=== PATIENT | male | born 2000 | race Caucasian/White ===

== ENCOUNTER → 2021-05-26 | Emergency (ER) | payer SELFPAY ==
[2021-05-26 11:40] VITALS: BP 103/70
== END | disposition left against medical advice (07) ==
LOC: ED 11:19
DX: K90.41 Non-celiac gluten sensitivity (principal); Z53.21 Procedure and treatment not carried out due to patient leaving prior to being seen by health care provider

== ENCOUNTER 2021-05-28 06:33 | Emergency (ER) | payer SELFPAY ==
[2021-05-28] MEDS ORDERED: SODIUM CHLORIDE 0.9% 1000 ML 1,000 ML IV ONE (12:43)
[2021-05-28] MEDS ORDERED: MORPHINE 4 MG/1 ML INJ IV ONE (12:43)
[2021-05-28] MEDS ORDERED: ONDANSETRON 4 MG/2 ML INJ IV ONE (12:43)
--- NOTE | 2021-05-28 13:01 | Emergency Department Report ---
ED Abdominal Pain HPI - General Chief Complaint: Abdominal Pain Stated Complaint: ABD PAIN,GLUTEN ALLERGY Time Seen by Provider: 05/28/21 12:36 Source: patient Mode of arrival: Ambulatory Limitations: No Limitations - History of Present Illness Initial Comments: 21-year-old male presents to the ER today with complaints of upper and lower abdominal pain. Patient states that his symptoms started today. Patient states that he was diagnosed with a gluten allergy a few years back when he went to the ER but he has never followed up with a GI specialist. He states that these not sure if the pain could be related to his gluten allergy but he came to the ER so he can get checked out. He states that he has been having frequent bowel movements, not diarrhea but he states that his stools have been small in caliber than usual. He denies any bright red blood in the stool or melena or any obvious mucus in the stool. He denies any nausea or vomiting. He denies any dysuria, hematuria or urinary frequency. He denies any fever or chills. He has never had any abdominal surgeries. He denies any illicit drug use or alcohol abuse. MD Complaint: abdominal pain -: This morning - Related Data Previous Rx's Medication Instructions Recorded Last Taken Type Famotidine [Pepcid] 20 mg PO BID #30 tablet 05/28/21 Unknown Rx Hyoscyamine Subl [Levsin Sl 0.125 0.125 mg SL Q4HR PRN #15 tablet 05/28/21 Unknown Rx TAB] Allergies Allergy/AdvReac Type Severity Reaction Status Date / Time gluten Allergy Unknown Verified 05/26/21 11:37 ED Review of Systems ROS: Stated complaint: ABD PAIN,GLUTEN ALLERGY Other details as noted in HPI Comment: All other systems reviewed and negative Constitutional: denies: chills, fever Eyes: denies: eye pain, eye discharge, vision change ENT: denies: ear pain, throat pain Respiratory: denies: cough, shortness of breath, wheezing Gastrointestinal: abdominal pain. denies: nausea, vomiting, diarrhea, constipation, hematemesis, melena, hematochezia Genitourinary: denies: urgency, dysuria, frequency, hematuria, discharge, testicular pain, testicular mass Musculoskeletal: denies: back pain, joint swelling, arthralgia Skin: denies: rash, lesions, change in color, change in hair/nails, pruritus Neurological: denies: headache, weakness, numbness, paresthesias, confusion, abnormal gait, vertigo Psychiatric: denies: anxiety, depression, auditory hallucinations, visual hallucinations, homicidal thoughts, suicidal thoughts Hematological/Lymphatic: denies: easy bleeding, easy bruising ED Past Medical Hx - Medications Home Medications: Home Medications Medication Instructions Recorded Confirmed Last Taken Type Famotidine [Pepcid] 20 mg PO BID #30 tablet 05/28/21 Unknown Rx Hyoscyamine Subl [Levsin Sl 0.125 0.125 mg SL Q4HR PRN #15 tablet 05/28/21 Unknown Rx TAB] ED Physical Exam - General Limitations: No Limitations General appearance: alert, in no apparent distress - Head Head exam: Present: atraumatic, normocephalic, normal inspection - Eye Eye exam: Present: normal appearance, PERRL, EOMI Pupils: Present: normal accommodation - Respiratory Respiratory exam: Present: normal lung sounds bilaterally. Absent: respiratory distress, wheezes, rales, rhonchi - Cardiovascular Cardiovascular Exam: Present: regular rate, normal rhythm, normal heart sounds - GI/Abdominal GI/Abdominal exam: Present: soft, tenderness (Mod ttp epigastric and RLQ with guarding ). Absent: distended - Neurological Exam Neurological exam: Present: alert, oriented X3, CN II-XII intact, normal gait - Psychiatric Psychiatric exam: Present: normal affect, normal mood - Skin Skin exam: Present: intact ED Course Vital Signs 05/28/21 06:36 Temperature 98.3 F Pulse Rate 60 Respiratory 16 Rate Blood Pressure 128/83 O2 Sat by Pulse 100 Oximetry ED Medical Decision Making - Lab Data Result diagrams: 05/28/21 13:08 05/28/21 13:08 - Radiology Data Radiology results: report reviewed Patient: SHERIDAN ARAIZA MR#: [id number] : 2000 Acct:[id number] Age/Sex: 21 / M ADM Date: 05/28/21 Loc: ED Attending Dr: Ordering Physician: MADISON MONTENEGRO Date of Service: 05/28/21 Procedure(s): CT abdomen pelvis w con Accession Number(s): [id number] cc: MADISON MONTENEGRO CT ABDOMEN AND PELVIS WITH CONTRAST INDICATION / CLINICAL INFORMATION: Epigastric and RLQ pain Omni 300 100ml . TECHNIQUE: Axial CT images were obtained through the abdomen and pelvis after IV contrast. All CT scans at this location are performed using CT dose reduction for ALARA by means of automated exposure control. COMPARISON: None available. FINDINGS: LOWER CHEST: No significant abnormality. LIVER: No significant abnormality. GALLBLADDER: No significant abnormality. BILE DUCTS: No significant abnormality. PANCREAS: No significant abnormality. SPLEEN: No significant abnormality. ADRENALS: No significant abnormality. RIGHT KIDNEY / URETER: No significant abnormality. LEFT KIDNEY / URETER: No significant abnormality. STOMACH / SMALL BOWEL: No significant abnormality. COLON: No significant abnormality. APPENDIX: No significant abnormality. PERITONEUM: No free fluid. No free air. No fluid collection. LYMPH NODES: No significant adenopathy. AORTA / ARTERIES: No significant abnormality. IVC / VEINS: No significant abnormality. URINARY BLADDER: No significant abnormality. REPRODUCTIVE ORGANS: No significant abnormality. ADDITIONAL FINDINGS: None. SKELETAL SYSTEM: No significant abnormality. IMPRESSION: 1. No significant abnormality. Signer Name: Manoj Nolasco MD Signed: 05/28/2021 3:17 PM Workstation Name: [id number] Transcribed By: CHHAYA Dictated By: Carlos Nolasco MD Electronically Authenticated By: Carlos Nolasco MD Signed Date/Time: 05/28/211516 DD/ 10 TD/TT: Critical care attestation.: If time is entered above; I have spent that time in minutes in the direct care of this critically ill patient, excluding procedure time. ED Disposition Clinical Impression: Abdominal pain Disposition: 01 HOME / SELF CARE / HOMELESS Is pt being admited?: No Does the pt Need Aspirin: No Condition: Stable Instructions: Abdominal Pain, Adult, [place] Additional Instructions: Take the levsin and the pepcid as prescribed to help with pain. Follow up with PCP And GI specialist especially if your symptoms persist but return to ED if worse or if change. Prescriptions: Hyoscyamine Subl [Levsin Sl 0.125 TAB] 0.125 mg SL Q4HR PRN #15 tablet PRN Reason: Abdominal spasm Famotidine [Pepcid] 20 mg PO BID #30 tablet Referrals: [facility] [Provider Group] - 3-5 Days BRODIE HAWKINS MD [Staff Physician] - 3-5 Days Forms: Work/School Release Form(ED) Time of Disposition: 15:26
[2021-05-28 14:04] LABS: Bilirubin,Urine NEG (Negative); Blood,Urine NEG (Negative); Color,Urine Yellow (Yellow); Mucus,Urine 2+ /HPF; Protein,Urine <15 mg/dL mg/dL (Negative); RBC,Urine < 1.0 /HPF (0.0-6.0); Urobilinogen,Urine < 2.0 mg/dL (<2.0); WBC,Urine < 1.0 /HPF (0.0-6.0)
[2021-05-28 14:05] LABS: Basophils % (Auto) 0.7 % (0.0-1.8); Eosinophils # (Auto) 0.1 K/mm3 (0.0-0.4); Eosinophils % (Auto) 1.7 % (0.0-4.3); Hematocrit 41.8 % (35.5-45.6); Hemoglobin 13.5 gm/dl (11.8-15.2); Lymphocytes # (Auto) 1.5 K/mm3 (1.2-5.4); Lymphocytes % (Auto) 49.5 % (13.4-35.0); Mean Corpuscular HGB Conc 32 % (32-34); Mean Corpuscular Volume 80 fl (84-94); Monocytes # (Auto) 0.3 K/mm3 (0.0-0.8); Monocytes % (Auto) 9.2 % (0.0-7.3); Platelet Count 334 K/mm3 (140-440); Red Blood Count 5.25 M/mm3 (3.65-5.03)
[2021-05-28 14:26] LABS: Alanine Aminotransferase 10 units/L (7-56); Albumin 4.9 g/dL (3.9-5); BUN/Creatinine Ratio 16; Blood Urea Nitrogen 13 mg/dL (9-20); Calcium 9.8 mg/dL (8.4-10.2); Hemolysis Index 5
--- NOTE | 2021-05-28 15:23 | Cat Scan Report ---
CT ABDOMEN AND PELVIS WITH CONTRAST INDICATION / CLINICAL INFORMATION: Epigastric and RLQ pain Omni 300 100ml . TECHNIQUE: Axial CT images were obtained through the abdomen and pelvis after IV contrast. All CT sc ans at this location are performed using CT dose reduction for ALARA by means of automated exposure c ontrol. COMPARISON: None available. FINDINGS: LOWER CHEST: No significant abnormality. LIVER: No significant abnormality. GALLBLADDER: No significant abnormality. BILE DUCTS: No significant abnormality. PANCREAS: No significant abnormality. SPLEEN: No significant abnormality. ADRENALS: No significant abnormality. RIGHT KIDNEY / URETER: No significant abnormality. LEFT KIDNEY / URETER: No significant abnormality. STOMACH / SMALL BOWEL: No significant abnormality. COLON: No significant abnormality. APPENDIX: No significant abnormality. PERITONEUM: No free fluid. No free air. No fluid collection. LYMPH NODES: No significant adenopathy. AORTA / ARTERIES: No significant abnormality. IVC / VEINS: No significant abnormality. URINARY BLADDER: No significant abnormality. REPRODUCTIVE ORGANS: No significant abnormality. ADDITIONAL FINDINGS: None. SKELETAL SYSTEM: No significant abnormality. IMPRESSION: 1. No significant abnormality. Signer Name: Manoj Nolasco MD Signed: 05/28/2021 3:17 PM Workstation Name: [id number]
[2021-05-28 15:34] VITALS: BP 120/80
== END 2021-05-28 15:37 | disposition home or self-care (01) ==
LOC: ED 06:33
DX: R10.10 Upper abdominal pain, unspecified (principal); R10.30 Lower abdominal pain, unspecified; Z91.018 Allergy to other foods
CPT/HCPCS: 36415; 74177; 80053; 81001; 83690; 85025; 96361; 96374; 96375; 99284; J2270; J2405; J7030; Q9967; Q0162

== ENCOUNTER 2021-05-29 08:19 | Emergency (ER) | payer SELFPAY ==
[2021-05-29 08:40] VITALS: BP 158/95
[2021-05-29] MEDS ORDERED: ONDANSETRON 4 MG ODT TAB PO ONE (10:09)
--- NOTE | 2021-05-29 10:09 | Emergency Department Report ---
ED N/V/D HPI - General Chief complaint: Abdominal Pain Stated complaint: AB PAIN PUI?: No Time Seen by Provider: 05/29/21 10:07 Source: patient Mode of arrival: Ambulatory Limitations: No Limitations - History of Present Illness Initial comments: Patient is a 21-year-old male that comes to the emergency room today with nausea. He was here yesterday. Refer to EMR for work-up. He states that he felt fine but he went to work and then got nauseated. Patient states that his symptoms are related to his gluten allergy. He has no vomiting. There is no diarrhea. ABCs are intact. He has no shortness of breath or chest pain. Vital signs are normal. Patient just walked to the ER from [facility] which is over a mile away because they require him to return with a work note. MD complaint: nausea -: month(s) Improves with: none Worsens with: eating Associated Symptoms: denies other symptoms, nausea/vomiting. denies: myalgias, chest pain, cough, diaphoresis, fever/chills, headaches, loss of appetite, malaise, rash, dysuria, shortness of breath, syncope, weakness - Related Data Previous Rx's Medication Instructions Recorded Last Taken Type Famotidine [Pepcid] 20 mg PO BID #30 tablet 05/28/21 Unknown Rx Hyoscyamine Subl [Levsin Sl 0.125 0.125 mg SL Q4HR PRN #15 tablet 05/28/21 Unknown Rx TAB] Ondansetron [Zofran Odt] 4 mg PO Q8HR PRN #10 tab.rapdis 05/29/21 Unknown Rx Allergies Allergy/AdvReac Type Severity Reaction Status Date / Time gluten Allergy Unknown Verified 05/29/21 08:36 FRUIT Allergy Vomiting Uncoded 05/29/21 08:37 ED Review of Systems ROS: Stated complaint: AB PAIN Other details as noted in HPI Comment: All other systems reviewed and negative ED Past Medical Hx - Past Medical History Previous Medical History?: Yes Additional medical history: Gluten allergy - Surgical History Past Surgical History?: No - Family History Family history: no significant - Social History Smoking Status: Never Smoker Substance Use Type: None - Medications Home Medications: Home Medications Medication Instructions Recorded Confirmed Last Taken Type Famotidine [Pepcid] 20 mg PO BID #30 tablet 05/28/21 Unknown Rx Hyoscyamine Subl [Levsin Sl 0.125 0.125 mg SL Q4HR PRN #15 tablet 05/28/21 Unknown Rx TAB] Ondansetron [Zofran Odt] 4 mg PO Q8HR PRN #10 tab.rapdis 05/29/21 Unknown Rx ED Physical Exam - General Limitations: No Limitations General appearance: alert, in no apparent distress - Head Head exam: Present: atraumatic, normocephalic - Eye Eye exam: Present: normal appearance - ENT ENT exam: Present: mucous membranes moist - Neck Neck exam: Present: normal inspection - Respiratory Respiratory exam: Present: normal lung sounds bilaterally. Absent: respiratory distress - Cardiovascular Cardiovascular Exam: Present: regular rate, normal rhythm. Absent: systolic murmur, diastolic murmur, rubs, gallop - GI/Abdominal GI/Abdominal exam: Present: soft, normal bowel sounds - Rectal Rectal exam: Present: deferred - Extremities Exam Extremities exam: Present: normal inspection - Back Exam Back exam: Present: normal inspection - Neurological Exam Neurological exam: Present: alert, oriented X3 - Psychiatric Psychiatric exam: Present: normal affect, normal mood - Skin Skin exam: Present: warm, dry, intact, normal color. Absent: rash ED Course Vital Signs 05/29/21 08:34 Temperature 98.3 F Pulse Rate 85 Respiratory 20 Rate Blood Pressure 158/95 O2 Sat by Pulse 98 Oximetry ED Medical Decision Making - Medical Decision Making EMR reviewed from yesterday Vital Signs 05/29/21 08:34 Temperature 98.3 F Pulse Rate 85 Respiratory 20 Rate Blood Pressure 158/95 O2 Sat by Pulse 98 Oximetry EMR reviewed and labs from yesterday reviewed. Patient states he discharged home he states he did get his medications filled. He states he did take them. However, when he arrived at work which is [employer] he developed nausea so he walked to the emergency room. Note that this is over a mile walk from with a [employer]. Patient has no nausea and vomiting in the ER. He already has referral from yesterday for a GI doctor. He states that he did not have time to make it because he had to work. I have given the patient a Zofran for nausea. I have also given him prescription to go for nausea. 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 He verbalizes understanding. On discharge patient is ambulatory, nontoxic [id number]. He is taking p.o. - Differential Diagnosis Nausea Critical care attestation.: If time is entered above; I have spent that time in minutes in the direct care of this critically ill patient, excluding procedure time. ED Disposition Clinical Impression: Nausea Disposition: 01 HOME / SELF CARE / HOMELESS Is pt being admited?: No Does the pt Need Aspirin: No Condition: Stable Additional Instructions: CONTINUE MEDS GIVEN TO YOU YESTERDAY FOLLOW UP WITH GI DISCUSSED REFERRAL AGAIN BELOW BLAND DIET ZOFRAN FOR NAUSEA STAY WELL HYDRATED Prescriptions: Ondansetron [Zofran Odt] 4 mg PO Q8HR PRN #10 tab.rapdis PRN Reason: Vomiting Referrals: PRIMARY CARE, [Primary Care Provider] - 3-5 Days PRISCILLA DAVIS MD [Staff Physician] - 3-5 Days JOSE LOUISE MD [Staff Physician] - 3-5 Days Forms: Work/School Release Form(ED) Time of Disposition: 10:09
== END 2021-05-29 12:01 | disposition home or self-care (01) ==
LOC: ED 08:19
DX: R11.0 Nausea (principal); Z91.018 Allergy to other foods; Z88.8 Allergy status to other drugs, medicaments and biological substances; Z79.899 Other long term (current) drug therapy
CPT/HCPCS: 99282; J3490; Q0162